=== PATIENT | female | born 1975 | race African-American/Black ===

== ENCOUNTER 2016-10-06 19:58 | Emergency (ER) | payer OTHER ==
[2016-10-06 20:06] VITALS: BP 161/93
[2016-10-06] MEDS ORDERED: IBUPROFEN 800 MG TABLET PO ONE (20:25)
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
== END 2016-10-06 21:30 | disposition home or self-care (01) ==
LOC: ER 19:58
DX: M54.2 Cervicalgia (principal); V43.52XA Car driver injured in collision with other type car in traffic accident, initial encounter; Z88.0 Allergy status to penicillin; I10 Essential (primary) hypertension
CPT/HCPCS: 72050; 99283